=== PATIENT | female | born 1970 | race American Indian/Alaskan Native ===

== ENCOUNTER 2016-07-25 22:29 | Emergency (ER) | payer MEDICARE, MEDICAID ==
[2016-07-25] MEDS ORDERED: Sodium Chloride 0.9% 250 ML IV SCH (23:00)
[2016-07-25 23:19] LABS: CHLORIDE,CL 105 mmol/L (101-111); SODIUM,NA 141 mmol/L (135-145)
[2016-07-26 00:18] VITALS: BP 111/67
[2016-07-26] MEDS ORDERED: Sodium Chloride 0.9% 1,000 ML IV SCH (00:30)
--- NOTE | 2016-07-26 00:40 | EDM.PDOC ---
ED HPI ALTERED MENTAL STATUS - General Chief Complaint: Drug or Alcohol Abuse Stated Complaint: COMING BY AMBULANCE Time Seen by Provider: 07/25/16 22:35 Source of Information: Reports: Patient, EMS History Limitations: Reports: Altered mental status - History of Present Illness INITIAL COMMENTS - FREE TEXT/NARRATIVE: ED via [facility]. Patient passenger in vehicle stopped for DUI . Patient found to be unresponsive by [employer] and EMS called. Patient drowsy on arrival. Opens eyes. Sppech thick. Admits taking approximately 18 - 300mg Gabepentin throughout day and 16 1 mg aprazolam. Denies attempting to harm self, just trying for good buzz. PD noted pill bottles in vehicle. Rx filled today for Gabapentin 300mg # 90 with 46 remaining and Aprazolam 1mg #60 with 37 remaining. Also found was Rx for Trazodone not belonging to either patient or wedding transportation driver of car. [employer] Frame of vehicle also found with pill.s Denied ETOH or other drug use. Baseline Mental Status: Reports: alert/oriented - Related Data Allergies/ADRs: Allergies acetaminophen [From Tylenol-Codeine #3] Allergy (Verified 07/25/16 22:45) Nausea codeine phosphate [From Tylenol-Codeine #3] Allergy (Verified 07/25/16 22:45) Nausea Home Meds: Home Meds Divalproex Sodium [Depakote] 125 mg PO BEDTIME 06/09/15 [History] Divalproex Sodium [Depakote] 500 mg PO BID 06/09/15 [History] QUEtiapine [SEROquel] 100 mg PO BEDTIME 06/09/15 [History] Sertraline [Zoloft] 150 mg PO TID 06/09/15 [History] Albuterol [Proair HFA] 2 puff INH Q6H 11/22/15 [History] Ibuprofen [Ibuprofen] 1 tab PO Q6H PRN 11/22/15 [History] SUMAtriptan [Imitrex] 1 tab PO ASDIRECTED PRN 11/22/15 [History] Past Medical History HEENT History: Reports: None Cardiovascular History: Reports: None Respiratory History: Reports: Asthma Gastrointestinal History: Reports: None Genitourinary History: Reports: Renal calculus, UTI, recurrent 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: , Other (see below) Other OB/BYN History: fulgeration of endometriosis Musculoskeletal History: Reports: Arthritis Neurological History: Reports: None Psychiatric History: Reports: Anxiety, Bipolar, Depression, OCD, PTSD, Other ( see below) Other Psychiatric History: tobacco habituation Endocrine/Metabolic History: Reports: None Hematologic History: Reports: Anemia Immunologic History: Reports: None Oncologic (Cancer) History: Reports: None Dermatologic History: Reports: None - Infectious Disease History Infectious Disease History: Reports: Chicken pox - Past Surgical History Head Surgeries/Procedures: Reports: None HEENT Surgical History: Reports: Tonsillectomy Cardiovascular Surgical History: Reports: None Respiratory Surgical History: Reports: None GI Surgical History: Reports: Cholecystectomy, Colonoscopy Female Surgical History: Reports: Breast biopsy, Hysterectomy, Salpingo- oophorectomy, Other (see below) Other Female Surgeries/Procedures: cervix removed Neurological Surgical History: Reports: None Musculoskeletal Surgical History: Reports: Shoulder surgery Social & Family History - Family History Family Medical History: Noncontributory - Tobacco Use Smoking Status *Q: Current Every Day Smoker Years of Tobacco use: 25 Packs/Tins Daily: 7 Used Tobacco, but Quit: No Second Hand Smoke Exposure: No - Caffeine Use Caffeine Use: Reports: Coffee, Soda, Tea - Alcohol Use Days Per Week of Alcohol Use: 1 Number of Drinks Per Day: 6 Total Drinks Per Week: 6 - Recreational Drug Use Recreational Drug Use: No - Living Situation & Occupation Living situation: Reports: with family Occupation: unemployed ED ROS GENERAL - Review of Systems Review Of Systems: See Below Constitutional: Reports: no symptoms HEENT: Reports: No symptoms, Glasses Respiratory: Reports: No Symptoms Cardiovascular: Reports: No symptoms GI/Abdominal: Reports: No symptoms Musculoskeletal: Reports: no symptoms Skin: Reports: no symptoms Neurological: Reports: Other (drowsy) Psychiatric: Denies: Suicidal ideation - Physical Exam Exam: See Below Exam Limited By: No limitations General Appearance: moderate distress, other (drowsy responds to voice, speech thick responses slow.) Eye Exam: bilateral eye: EOMI, PERRL (3mm) Ears: normal external exam Nose: normal inspection Throat/Mouth: Normal inspection Head Exam: atraumatic, normocephalic Neck: normal inspection Respiratory/Chest: no respiratory distress, lungs clear, normal breath sounds Cardiovascular: normal peripheral pulses, regular rate, rhythm GI/Abdominal: normal bowel sounds Neuro Exam (Abbreviated): oriented, normal cognition, slow to respond Psychiatric: flat affect Skin Exam: Warm, Dry, Intact, Normal color Course - Vital Signs Last Recorded V/S: Last Vital Signs Temp 97 F 07/26/16 00:17 Pulse 75 07/26/16 00:17 Resp 16 07/26/16 00:17 BP 111/67 07/26/16 00:17 Pulse Ox 96 07/26/16 00:17 - Orders/Labs/Meds Orders: Active Orders 24 hr Category Date Time Status EKG 12 Lead [EKG Documentation Completion] [RC] URGENT Care 07/25/16 23:10 Active Labs: Laboratory Tests 07/25/16 07/25/16 07/25/16 Range/Units 22:50 22:55 22:55 WBC 7.3 (5.0-10.0) 10^3/uL RBC 4.37 (4.2-5.4) 10^6/uL Hgb 13.5 (12.0-16.0) g/dL Hct 39.3 (37.0-47.0) % MCV 89.9 (80-100) fL MCH 30.9 (27.0-34.0) pg MCHC 34.4 (33.0-35.0) g/dL Plt Count 225 (150-450) 10^3/uL Neut % (Auto) 30.3 L (42.2-75.2) % Lymph % (Auto) 53.5 H (20.5-50.1) % [place] % (Auto) 8.4 H (2-8) % Eos % (Auto) 7.5 H (1.0-3.0) % Baso % (Auto) 0.3 (0.0-1.0) % Sodium 141 (135-145) mmol/L Potassium 4.1 (3.6-5.0) mmol/L Chloride 105 (101-111) mmol/L Carbon Dioxide 27.0 (21.0-31.0) mmol/L Anion Gap 13.1 BUN 21 H (7-18) mg/dL Creatinine 0.7 (0.6-1.3) mg/dL Est Cr Clr Drug Dosing TNP Estimated GFR (MDRD) > 60 BUN/Creatinine Ratio 30.00 Glucose 95 (74-105) mg/dL Calcium 9.6 (8.4-10.2) mg/dl Total Bilirubin 0.4 (0.2-1.0) mg/dL AST 24 (10-42) IU/L ALT 30 (10-60) IU/L Alkaline Phosphatase 49 (42-121) IU/L Total Protein 7.0 (6.7-8.2) g/dl Albumin 4.1 (3.2-5.5) g/dl Globulin 2.9 Albumin/Globulin Ratio 1.41 Urine Opiates Screen Negative (NEGATIVE) Ur Oxycodone Screen Negative (NEGATIVE) Urine Methadone Screen Negative (NEGATIVE) Ur Barbiturates Screen Negative (NEGATIVE) U Tricyclic Antidepress Negative (NEGATIVE) Ur Phencyclidine Scrn Negative (NEGATIVE) Ur Amphetamine Screen Negative (NEGATIVE) U Methamphetamines Scrn Negative (NEGATIVE) Urine MDMA Screen Negative (NEGATIVE) U Benzodiazepines Scrn Positive H (NEGATIVE) Urine Cocaine Screen Negative (NEGATIVE) U Marijuana (THC) Screen Negative (NEGATIVE) Ethyl Alcohol < 5 mg/dL Meds: Medications Discontinued Medications Generic Name Dose Route Start Last Admin Trade Name Freq PRN Reason Stop Dose Admin Sodium Chloride 250 mls @ 250 mls/hr 07/25/16 23:00 07/25/16 23:00 Normal Saline IV 250 mls/hr ASDIRECTED MARTINEZ Administration Sodium Chloride 1,000 mls @ 250 mls/hr 07/26/16 00:30 07/26/16 00:33 Normal Saline IV 250 mls/hr ASDIRECTED MARTINEZ Administration - Re-Assessments/Exams Free Text/Narrative Re-Assessment/Exam: 07/26/16 00:41 Drowsy, opens eyes to verbal. Slight decrease in BP when sleeping HR remains 70- 80. EKG NSR 07/26/16 00:55 Up at bedside steady, Departure - Departure Time of Disposition: 00:55 Disposition: Home, Self-Care 01 Condition: fair Clinical Impression: Drug abuse Instructions: Benzodiazepine Overdose Forms: ED Department Discharge Additional Instructions: Take Prescription medications as directed - DONT ABUSE - My Orders Last 24 Hours: My Active Orders 07/25/16 23:10 EKG 12 Lead [EKG Documentation Completion] [RC] URGENT - Assessment/Plan Last 24 Hours: My Active Orders 07/25/16 23:10 EKG 12 Lead [EKG Documentation Completion] [RC] URGENT
--- NOTE | 2016-07-29 23:00 | EKG ---
07/25/2016 - MICHA PAULSON 12-lead EKG shows normal sinus rhythm with heart rate of 62. No significant ST elevation or ST depression noted on this 12-lead EKG. Mild nonspecific ST changes noted on lead V2, could be lead placement. [facility] /[id number]
--- NOTE | 2016-07-30 09:43 | EKG ---
07/25/2016 - MICHA PAULSON - Twelve-lead EKG shows normal sinus rhythm with heart rate of 62. No significant ST elevation or ST depression noted on this 12-lead EKG. [facility] /[id number]
== END 2016-07-26 01:03 | disposition home or self-care (01) ==
LOC: DL.ED 22:29
DX: F19.10 Other psychoactive substance abuse, uncomplicated (principal); J45.909 Unspecified asthma, uncomplicated; M19.90 Unspecified osteoarthritis, unspecified site; F41.9 Anxiety disorder, unspecified; F32.9 Major depressive disorder, single episode, unspecified; F17.210 Nicotine dependence, cigarettes, uncomplicated; Z87.440 Personal history of urinary (tract) infections; Z79.899 Other long term (current) drug therapy; Z86.2 Personal history of diseases of the blood and blood-forming organs and certain disorders involving the immune mechanism; Z90.49 Acquired absence of other specified parts of digestive tract; Z98.890 Other specified postprocedural states; Z90.710 Acquired absence of both cervix and uterus; Z88.5 Allergy status to narcotic agent; Z88.6 Allergy status to analgesic agent
CPT/HCPCS: 36415; 80053; 80305; 85025; 93005; 96365; 99285; G0480; J7030; J7050; 93010; 99282

== ENCOUNTER 2017-03-22 12:00 | Emergency (ER) | payer MEDICARE, MEDICAID ==
[2017-03-22] MEDS ORDERED: Sodium Chloride 0.9% 10 ML Syringe FLUSH PRN (12:22)
[2017-03-22 12:27] VITALS: BP 104/69
--- NOTE | 2017-03-22 12:51 | EDM.PDOC ---
ED HPI GENERAL MEDICAL PROBLEM - General Chief Complaint: Gastrointestinal Problem Stated Complaint: PASSING BLOOD IN BM MOVEMENTS Time Seen by Provider: 03/22/17 12:15 Source of Information: Reports: Patient, RN, RN Notes Reviewed History Limitations: Reports: No Limitations - History of Present Illness INITIAL COMMENTS - FREE TEXT/NARRATIVE: Pt presents to ER with c/o blood in her stool. She states last night after eating supper she did not feel well and went to the bathroom. She states she felt as if she was going to pass out. She states she went to bed after that. She was up at 2am when she had blood in her stool. She states she has had 2-3 more bowel movements with blood in it, with the last one being 30-40 minutes prior to arrival. She states the blood in the stool is bright red. She states abdominal cramping comes and goes, but feels a burning pain in her stomach. She rates the pain 6/10. She admits to nausea and dizziness last night, but denies vomiting, fever, chills, recent illness, abdominal or stomach issues in the past , and alcohol use. Onset: Sudden Onset Date: 03/21/17 Location: Reports: Abdomen Severity: Mild Improves with: Reports: None Worsens with: Reports: None Associated Symptoms: Reports: No Other Symptoms Epigastric Pain Score (Numeric/FACES): 6 - Related Data Allergies Allergy/AdvReac Type Severity Reaction Status Date / Time acetaminophen Allergy Nausea Verified 07/25/16 22:45 [From Tylenol-Codeine #3] codeine phosphate Allergy Nausea Verified 07/25/16 22:45 [From Tylenol-Codeine #3] Home Meds: Home Meds Albuterol [Proair HFA] 2 puff INH Q6H 11/22/15 [History] Ibuprofen [Ibuprofen] 1 tab PO Q6H PRN 11/22/15 [History] SUMAtriptan [Imitrex] 1 tab PO ASDIRECTED PRN 11/22/15 [History] Gabapentin [Neurontin] 1 tab PO TID 03/22/17 [History] QUEtiapine Fumarate [Seroquel Xr] 450 mg PO BEDTIME 03/22/17 [History] Tolterodine [Detrol] 1 tab PO DAILY 03/22/17 [History] carBAMazepine [TEGretol] 4 tab PO BID 03/22/17 [History] Past Medical History HEENT History: Reports: None Cardiovascular History: Reports: None Respiratory History: Reports: Asthma Gastrointestinal History: Reports: None Genitourinary History: Reports: Renal Calculus, UTI, Recurrent 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 OB/BYN History: fulgeration of endometriosis Musculoskeletal History: Reports: Arthritis Neurological History: Reports: None Psychiatric History: Reports: Anxiety, Bipolar, Depression, OCD, PTSD Other Psychiatric History: tobacco habituation Endocrine/Metabolic History: Reports: None Hematologic History: Reports: Anemia Immunologic History: Reports: None Oncologic (Cancer) History: Reports: None Dermatologic History: Reports: None - Infectious Disease History Infectious Disease History: Reports: Chicken Pox - Past Surgical History Head Surgeries/Procedures: Reports: None HEENT Surgical History: Reports: Tonsillectomy Cardiovascular Surgical History: Reports: None Respiratory Surgical History: Reports: None GI Surgical History: Reports: Cholecystectomy, Colonoscopy Female Surgical History: Reports: Breast Biopsy, Hysterectomy, Salpingo- Oophorectomy Neurological Surgical History: Reports: None Musculoskeletal Surgical History: Reports: Shoulder Surgery Social & Family History - Family History Family Medical History: Noncontributory - Tobacco Use Smoking Status *Q: Current Every Day Smoker Years of Tobacco use: 30 Packs/Tins Daily: 0.5 Used Tobacco, but Quit: No Second Hand Smoke Exposure: No - Caffeine Use Caffeine Use: Reports: Coffee, Energy Drinks, Soda, Tea - Alcohol Use Days Per Week of Alcohol Use: 1 Number of Drinks Per Day: 6 Total Drinks Per Week: 6 - Recreational Drug Use Recreational Drug Use: No - Living Situation & Occupation Living situation: Reports: with Family Occupation: Unemployed ED ROS GENERAL - Review of Systems Review Of Systems: ROS reveals no pertinent complaints other than HPI. ED EXAM, GI/ABD - Physical Exam Exam: See Below Exam Limited By: No Limitations General Appearance: Alert, WD/WN, No Apparent Distress Eyes: Bilateral: Normal Appearance, EOMI Ears: Normal External Exam, Hearing Grossly Normal Nose: Normal Inspection Throat/Mouth: Normal Inspection, Normal Voice, No Airway Compromise Head: Atraumatic, Normocephalic Neck: Normal Inspection, Supple, Non-Tender, Full Range of Motion Respiratory/Chest: No Respiratory Distress, Lungs Clear, Normal Breath Sounds, No Accessory Muscle Use, Chest Non-Tender Cardiovascular: Normal Peripheral Pulses, Regular Rate, Rhythm, No Edema, No Gallop, No JVD, No Murmur, No Rub GI/Abdominal Exam: Normal Bowel Sounds, Soft, No Organomegaly, No Distention, No Abnormal Bruit, No Mass, Tender (Female) Exam: Deferred Rectal (Female) Exam: Normal Exam, Normal Rectal Tone, Black Stool, Bloody Stool , Heme + Stool, Hemorrhoids (internal) Back Exam: Normal Inspection, Full Range of Motion Extremities: Normal Inspection, Normal Range of Motion, Non-Tender, No Pedal Edema, Normal Capillary Refill Neurological: Alert, Oriented, CN II-XII Intact, Normal Cognition, Normal Gait, Normal Reflexes, No Motor/Sensory Deficits Psychiatric: Normal Affect, Normal Mood Skin Exam: Warm, Dry, Intact, Normal Color, No Rash Lymphatic: No Adenopathy Course - Vital Signs Last Recorded V/S: Last Vital Signs Temp 98.4 F 03/22/17 12:05 Pulse 83 03/22/17 12:05 Resp 16 03/22/17 12:05 BP 104/69 03/22/17 12:05 Pulse Ox 99 03/22/17 12:05 - Orders/Labs/Meds Orders: Active Orders 24 hr Category Date Time Status Peripheral IV Care [RC] . DIRECTED Care 03/22/17 12:23 Active Sodium Chloride 0.9% [Saline Flush] Med 03/22/17 12:22 Active 10 ml FLUSH ASDIRECTED PRN Peripheral IV Insertion Adult [OM.PC] Stat Oth 03/22/17 12:22 Ordered Medication Orders Sodium Chloride (Saline Flush) 10 ml FLUSH ASDIRECTED PRN PRN Reason: Keep Vein Open Last Admin: 03/22/17 12:41 Dose: 10 ml Labs: Laboratory Tests 03/22/17 03/22/17 Range/Units 12:30 12:30 WBC 7.9 (5.0-10.0) 10^3/uL RBC 4.42 (4.2-5.4) 10^6/uL Hgb 13.7 (12.0-16.0) g/dL Hct 39.0 (37.0-47.0) % MCV 88.2 (80-100) fL MCH 31.0 (27.0-34.0) pg MCHC 35.1 H (33.0-35.0) g/dL Plt Count 268 (150-450) 10^3/uL Neut % (Auto) 70.9 (42.2-75.2) % Lymph % (Auto) 19.6 L (20.5-50.1) % [place] % (Auto) 6.6 (2-8) % Eos % (Auto) 2.8 (1.0-3.0) % Baso % (Auto) 0.1 (0.0-1.0) % Sodium 138 (135-145) mmol/L Potassium 4.1 (3.6-5.0) mmol/L Chloride 105 (101-111) mmol/L Carbon Dioxide 28.0 (21.0-31.0) mmol/L Anion Gap 9.1 BUN 14 (7-18) mg/dL Creatinine 0.9 (0.6-1.3) mg/dL Est Cr Clr Drug Dosing 74.34 mL/min Estimated GFR (MDRD) > 60 BUN/Creatinine Ratio 15.55 Glucose 106 H (74-105) mg/dL Calcium 9.6 (8.4-10.2) mg/dl Total Bilirubin 0.2 (0.2-1.0) mg/dL AST 20 (10-42) IU/L ALT 16 (10-60) IU/L Alkaline Phosphatase 58 (42-121) IU/L Total Protein 7.2 (6.7-8.2) g/dl Albumin 4.4 (3.2-5.5) g/dl Globulin 2.8 Albumin/Globulin Ratio 1.57 Meds: Medications Generic Name Dose Route Start Last Admin Trade Name Freq PRN Reason Stop Dose Admin Sodium Chloride 10 ml 03/22/17 12:22 03/22/17 12:41 Saline Flush FLUSH 10 ml ASDIRECTED PRN Administration Keep Vein Open Discontinued Medications Generic Name Dose Route Start Last Admin Trade Name Freq PRN Reason Stop Dose Admin Iopamidol 75 ml 03/22/17 13:03 03/22/17 13:10 Isovue-300 (61%) IVPUSH 03/22/17 13:04 75 ml ONETIME ONE Administration - Radiology Interpretation Free Text/Narrative:: CT Abdomen/Pelvis with contrast: Probable mild left sided colitis See rad report Departure - Departure Time of Disposition: 14:02 Disposition: Home, Self-Care 01 Condition: Fair Clinical Impression: Colitis Abdominal pain Qualifiers: Abdominal location: generalized Qualified Code(s): R10.84 - Generalized abdominal pain - Discharge Information Instructions: Abdominal Pain, Adult, [id number], Colitis Forms: ED Department Discharge Additional Instructions: RX: Prednisone Follow up this week with your primary care facility - My Orders Last 24 Hours: My Active Orders 03/22/17 12:22 Sodium Chloride 0.9% [Saline Flush] 10 ml FLUSH ASDIRECTED PRN Peripheral IV Insertion Adult [OM.PC] Stat 03/22/17 12:23 Peripheral IV Care [RC] . DIRECTED - Assessment/Plan Last 24 Hours: My Active Orders 03/22/17 12:22 Sodium Chloride 0.9% [Saline Flush] 10 ml FLUSH ASDIRECTED PRN Peripheral IV Insertion Adult [OM.PC] Stat 03/22/17 12:23 Peripheral IV Care [RC] . DIRECTED
[2017-03-22 13:00] LABS: CHLORIDE,CL 105 mmol/L (101-111); SODIUM,NA 138 mmol/L (135-145)
[2017-03-22] MEDS ORDERED: Iopamidol 612 MG/ML 75 ML Bottle IVPUSH ONE (13:03)
== END 2017-03-22 14:35 | disposition home or self-care (01) ==
LOC: DL.ED 12:00
DX: K52.9 Noninfective gastroenteritis and colitis, unspecified (principal); F17.210 Nicotine dependence, cigarettes, uncomplicated; Z88.6 Allergy status to analgesic agent; Z88.5 Allergy status to narcotic agent; Z79.899 Other long term (current) drug therapy
CPT/HCPCS: 36415; 74177; 80053; 82272; 85025; 99284; J7050; Q9967

== ENCOUNTER 2017-06-23 13:33 | Emergency (ER) | payer MEDICARE, MEDICAID ==
[2017-06-23 14:03] VITALS: BP 111/71
[2017-06-23] MEDS ORDERED: Ketorolac 30 MG/ML SDV IM ONE (14:19)
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
== END 2017-06-23 14:46 | disposition home or self-care (01) ==
LOC: DL.ED 13:33
DX: S63.502A Unspecified sprain of left wrist, initial encounter (principal); Z88.6 Allergy status to analgesic agent; Z88.5 Allergy status to narcotic agent; Z79.899 Other long term (current) drug therapy; F17.210 Nicotine dependence, cigarettes, uncomplicated; W50.0XXA Accidental hit or strike by another person, initial encounter
CPT/HCPCS: 73110; 96372; 99283; J1885

== ENCOUNTER 2017-08-02 18:23 | Emergency (ER) | payer MEDICARE, MEDICAID ==
--- NOTE | 2017-08-02 19:20 | EDM.PDOC ---
ED HPI GENERAL MEDICAL PROBLEM - General Chief Complaint: Upper Extremity Injury/Pain Stated Complaint: [id number] POST SURGERY ON WRIST SOMETHING IS WRONG Time Seen by Provider: 08/02/17 19:05 Source of Information: Reports: Patient History Limitations: Reports: No Limitations - History of Present Illness INITIAL COMMENTS - FREE TEXT/NARRATIVE: Surgery to leftt wrist past Thursday. Patient unsure why, "something with tendon" . Bumped on counter last night today increased pain redness and swelling. States tried To get a hold of surgeon in [place] yesterday. Tried Ibuprofen without relief. 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 Left Wrist Pain Score (Numeric/FACES): 8 - Related Data Allergies Allergy/AdvReac Type Severity Reaction Status Date / Time acetaminophen Allergy Nausea Verified 08/02/17 18:43 [From Tylenol-Codeine #3] codeine phosphate Allergy Nausea Verified 08/02/17 18:43 [From Tylenol-Codeine #3] Home Meds: Home Meds Albuterol [Proair HFA] 2 puff INH Q6H 11/22/15 [History] Ibuprofen 1 tab PO Q6H PRN 11/22/15 [History] SUMAtriptan [Imitrex] 1 tab PO ASDIRECTED PRN 11/22/15 [History] Gabapentin [Neurontin] 1 tab PO TID 03/22/17 [History] QUEtiapine Fumarate [Seroquel Xr] 450 mg PO BEDTIME 03/22/17 [History] Tolterodine [Detrol] 1 tab PO DAILY 03/22/17 [History] carBAMazepine [TEGretol] 4 tab PO BID 03/22/17 [History] Past Medical History HEENT History: Reports: None Cardiovascular History: Reports: None Respiratory History: Reports: Asthma Gastrointestinal History: Reports: None Genitourinary History: Reports: Renal Calculus, UTI, 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 OB/BYN History: fulgeration of endometriosis Musculoskeletal History: Reports: Arthritis Neurological History: Reports: None Psychiatric History: Reports: Anxiety, Bipolar, Depression, OCD, PTSD Other Psychiatric History: tobacco habituation Endocrine/Metabolic History: Reports: None Hematologic History: Reports: Anemia Immunologic History: Reports: None Oncologic (Cancer) History: Reports: None Dermatologic History: Reports: None - Infectious Disease History Infectious Disease History: Reports: Chicken Pox - Past Surgical History Head Surgeries/Procedures: Reports: None HEENT Surgical History: Reports: Tonsillectomy Cardiovascular Surgical History: Reports: None Respiratory Surgical History: Reports: None GI Surgical History: Reports: Cholecystectomy, Colonoscopy Female Surgical History: Reports: Breast Biopsy, Hysterectomy, Salpingo- Oophorectomy Neurological Surgical History: Reports: None Musculoskeletal Surgical History: Reports: Shoulder Surgery Social & Family History - Family History Family Medical History: Noncontributory Oncologic: Reports: Lymphoma - Tobacco Use Smoking Status *Q: Current Every Day Smoker Years of Tobacco use: 20 Packs/Tins Daily: 8 Used Tobacco, but Quit: No Second Hand Smoke Exposure: No - Caffeine Use Caffeine Use: Reports: Energy Drinks, Soda - Alcohol Use Days Per Week of Alcohol Use: 1 Number of Drinks Per Day: 6 Total Drinks Per Week: 6 - Recreational Drug Use Recreational Drug Use: No - Living Situation & Occupation Living situation: Reports: with Family Occupation: Unemployed Review of Systems - Review of Systems Review Of Systems: ROS reveals no pertinent complaints other than HPI. ED EXAM, GENERAL - Physical Exam Exam: See Below Exam Limited By: No Limitations General Appearance: Alert, No Apparent Distress Eye Exam: Bilateral Eye: EOMI Ears: Normal External Exam Throat/Mouth: Normal Voice Head: Atraumatic, Normocephalic Respiratory/Chest: No Respiratory Distress Cardiovascular: Normal Peripheral Pulses, Regular Rate, Rhythm Extremities: Other (mild swelling to left wrist over distal radius with localized redness surrounding area of incision. Slight decrease in sensation fo datal 3rd and 4th finger to light touch. ) Neurological: Alert, Oriented Skin Exam: Warm, Dry, Intact, Wound/Incision (right lateral wrist. Surgical incision. clean no drainage. ) Course - Vital Signs Last Recorded V/S: Last Vital Signs Temp 98.3 F 08/02/17 18:30 Pulse 84 08/02/17 18:30 Resp 18 08/02/17 18:30 BP 134/93 H 08/02/17 18:30 Pulse Ox 100 08/02/17 18:30 - Orders/Labs/Meds Labs: Laboratory Tests 08/02/17 08/02/17 08/02/17 Range/Units 19:27 19:27 19:27 WBC 4.1 L (5.0-10.0) 10^3/uL RBC 4.11 L (4.2-5.4) 10^6/uL Hgb 12.8 (12.0-16.0) g/dL Hct 35.8 L (37.0-47.0) % MCV 87.1 (80-100) fL MCH 31.1 (27.0-34.0) pg MCHC 35.8 H (33.0-35.0) g/dL Plt Count 245 (150-450) 10^3/uL Neut % (Auto) 34.7 L (42.2-75.2) % Lymph % (Auto) 48.9 (20.5-50.1) % [place] % (Auto) 9.6 H (2-8) % Eos % (Auto) 6.6 H (1.0-3.0) % Baso % (Auto) 0.2 (0.0-1.0) % Sodium 134 L (135-145) mmol/L Potassium 3.8 (3.6-5.0) mmol/L Chloride 97 L (101-111) mmol/L Carbon Dioxide 30.0 (21.0-31.0) mmol/L Anion Gap 10.8 BUN 13 (7-18) mg/dL Creatinine 0.8 (0.6-1.3) mg/dL Est Cr Clr Drug Dosing 66.46 mL/min Estimated GFR (MDRD) > 60 BUN/Creatinine Ratio 16.25 Glucose 87 (74-105) mg/dL Calcium 9.4 (8.4-10.2) mg/dl Total Bilirubin 0.4 (0.2-1.0) mg/dL AST 67 H (10-42) IU/L ALT 105 H (10-60) IU/L Alkaline Phosphatase 82 (42-121) IU/L C-Reactive Protein < 0.5 (0.0-1.3) mg/dL Total Protein 6.9 (6.7-8.2) g/dl Albumin 4.2 (3.2-5.5) g/dl Globulin 2.7 Albumin/Globulin Ratio 1.56 - Radiology Interpretation Free Text/Narrative:: left wrist negative for fracture Departure - Departure Time of Disposition: 20:33 Disposition: Home, Self-Care 01 Condition: Good Clinical Impression: Wrist pain Qualifiers: Laterality: left Qualified Code(s): M25.532 - Pain in left wrist - Discharge Information Instructions: Wrist Pain, Adult, [id number] Referrals: Betty Oliveira [Primary Care Provider] - Forms: ED Department Discharge Additional Instructions: ice pack elevate hortencia wrap follow up with surgeon tomorrow am. Alternate tylenol 650mg and ibuprofen 600mg every 4 hours as needed for pain
[2017-08-02 20:11] LABS: CHLORIDE,CL 97 mmol/L (101-111); SODIUM,NA 134 mmol/L (135-145)
[2017-08-02] MEDS ORDERED: Ketorolac 30 MG/ML SDV IVPUSH ONE (20:55)
[2017-08-02 21:12] VITALS: BP 128/90
== END 2017-08-02 21:14 | disposition home or self-care (01) ==
LOC: DL.ED 18:23
DX: M25.532 Pain in left wrist (principal); F17.210 Nicotine dependence, cigarettes, uncomplicated; Z88.6 Allergy status to analgesic agent; Z88.5 Allergy status to narcotic agent; Z79.899 Other long term (current) drug therapy
CPT/HCPCS: 36415; 73110; 80053; 85025; 86140; 96372; 99283; J1885; 99282

== ENCOUNTER 2017-08-13 18:07 | Emergency (ER) | payer MEDICARE, MEDICAID ==
[2017-08-13 18:55] VITALS: BP 132/76
[2017-08-13] MEDS ORDERED: Albuterol/Ipratropium 3.0-0.5 MG/3 ML Neb Soln NEB ONE (19:03)
[2017-08-13] MEDS ORDERED: Acetaminophen 325 MG Tab PO ONE (19:03)
[2017-08-13] MEDS ORDERED: Albuterol 0.083% 2.5 MG/3 ML Neb Soln NEB ONE (19:33)
[2017-08-13 19:37] LABS: CHLORIDE,CL 97 mmol/L (101-111); SODIUM,NA 132 mmol/L (135-145)
[2017-08-13] MEDS ORDERED: methylPREDNISolone Sodium Succinate 125 MG/2 ML SDV IVPUSH ONE (19:39)
[2017-08-13] MEDS ORDERED: Benzonatate 100 MG Cap PO ONE (19:39)
[2017-08-13] MEDS ORDERED: Amoxicillin/Clavulanate K 875-125 MG Tab PO ONE (20:35)
--- NOTE | 2017-08-13 20:40 | EDM.PDOC ---
ED HPI GENERAL MEDICAL PROBLEM - General Chief Complaint: Respiratory Problem Stated Complaint: [id number] SICK WITH A COLD 6 DAYS GETTING WORSE Time Seen by Provider: 08/13/17 19:00 Source of Information: Reports: Patient History Limitations: Reports: No Limitations - History of Present Illness INITIAL COMMENTS - FREE TEXT/NARRATIVE: c/o cough, cold symptoms for one week. Chest sands with coughing, Has inhaler not helping much. Hx "acute asthma", Decreased tobacco use over past week. Chest Pain Score (Numeric/FACES): 5 - Related Data Allergies Allergy/AdvReac Type Severity Reaction Status Date / Time acetaminophen Allergy Nausea Verified 08/13/17 18:49 [From Tylenol-Codeine #3] codeine phosphate Allergy Nausea Verified 08/13/17 18:49 [From Tylenol-Codeine #3] Home Meds: Home Meds Albuterol [Proair HFA] 2 puff INH Q6H 11/22/15 [History] Ibuprofen 1 tab PO Q6H PRN 11/22/15 [History] SUMAtriptan [Imitrex] 1 tab PO ASDIRECTED PRN 11/22/15 [History] Gabapentin [Neurontin] 1 tab PO TID 03/22/17 [History] QUEtiapine Fumarate [Seroquel Xr] 450 mg PO BEDTIME 03/22/17 [History] Tolterodine [Detrol] 1 tab PO DAILY 03/22/17 [History] carBAMazepine [TEGretol] 4 tab PO BID 03/22/17 [History] oxyCODONE 5 mg PO ASDIRECTED 08/13/17 [History] Past Medical History HEENT History: Reports: None Cardiovascular History: Reports: None Respiratory History: Reports: Asthma Gastrointestinal History: Reports: None Genitourinary History: Reports: Renal Calculus, UTI, 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 OB/BYN History: fulgeration of endometriosis Musculoskeletal History: Reports: Arthritis Neurological History: Reports: None Psychiatric History: Reports: Anxiety, Bipolar, Depression, OCD, PTSD Other Psychiatric History: tobacco habituation Endocrine/Metabolic History: Reports: None Hematologic History: Reports: Anemia Immunologic History: Reports: None Oncologic (Cancer) History: Reports: None Dermatologic History: Reports: None - Infectious Disease History Infectious Disease History: Reports: Chicken Pox - Past Surgical History Head Surgeries/Procedures: Reports: None HEENT Surgical History: Reports: Tonsillectomy Cardiovascular Surgical History: Reports: None Respiratory Surgical History: Reports: None GI Surgical History: Reports: Cholecystectomy, Colonoscopy Female Surgical History: Reports: Breast Biopsy, Hysterectomy, Salpingo- Oophorectomy Neurological Surgical History: Reports: None Musculoskeletal Surgical History: Reports: Shoulder Surgery Social & Family History - Family History Family Medical History: Noncontributory Oncologic: Reports: Lymphoma - Caffeine Use Caffeine Use: Reports: Coffee - Recreational Drug Use Recreational Drug Use: No - Living Situation & Occupation Living situation: Reports: with Family Occupation: Unemployed ED ROS GENERAL - Review of Systems Review Of Systems: See Below Constitutional: Reports: Fever, Chills, Malaise HEENT: Reports: Throat Pain Respiratory: Reports: Wheezing, Pleuritic Chest Pain, Cough. Denies: Sputum Cardiovascular: Reports: No Symptoms GI/Abdominal: Reports: No Symptoms Musculoskeletal: Reports: No Symptoms Skin: Reports: No Symptoms Neurological: Reports: No Symptoms ED EXAM, GENERAL - Physical Exam Exam: See Below Exam Limited By: No Limitations General Appearance: Alert, Moderate Distress (frequent dry cough), Thin Ears: Normal External Exam, Normal TMs Nose: Normal Inspection Throat/Mouth: Normal Inspection, Perioral Cyanosis Head: Atraumatic Neck: Normal Inspection Respiratory/Chest: Wheezing (right base), Other (bronchospasm, freq dry cough) Cardiovascular: Normal Peripheral Pulses, Regular Rate, Rhythm GI/Abdominal: Normal Bowel Sounds Extremities: Normal Inspection Neurological: Alert, Oriented, Normal Cognition Psychiatric: Normal Affect Skin Exam: Warm, Dry, Intact Course - Vital Signs Last Recorded V/S: Last Vital Signs Temp 103.3 F H 08/13/17 18:53 Pulse 127 H 08/13/17 19:36 Resp 20 08/13/17 18:53 BP 132/76 08/13/17 18:53 Pulse Ox 90 L 08/13/17 18:53 - Orders/Labs/Meds Orders: Active Orders 24 hr Category Date Time Status RT Aerosol Therapy [RC] ASDIRECTED Care 08/13/17 19:03 Active RT Aerosol Therapy [RC] ASDIRECTED Care 08/13/17 19:33 Active CULTURE BLOOD [BC] Stat Lab 08/13/17 19:08 Received CULTURE BLOOD [BC] Stat Lab 08/13/17 19:12 Received Blood Culture x2 Reflex Set [OM.PC] Stat Oth 08/13/17 19:02 Ordered Labs: Laboratory Tests 08/13/17 08/13/17 08/13/17 Range/Units 19:08 19:08 19:08 WBC 8.7 (5.0-10.0) 10^3/uL RBC 3.81 L (4.2-5.4) 10^6/uL Hgb 11.6 L (12.0-16.0) g/dL Hct 32.8 L (37.0-47.0) % MCV 86.1 (80-100) fL MCH 30.4 (27.0-34.0) pg MCHC 35.4 H (33.0-35.0) g/dL Plt Count 234 (150-450) 10^3/uL Neut % (Auto) 74.2 (42.2-75.2) % Lymph % (Auto) 15.5 L (20.5-50.1) % [place] % (Auto) 8.7 H (2-8) % Eos % (Auto) 1.5 (1.0-3.0) % Baso % (Auto) 0.1 (0.0-1.0) % Sodium 132 L (135-145) mmol/L Potassium 3.5 L (3.6-5.0) mmol/L Chloride 97 L (101-111) mmol/L Carbon Dioxide 25.0 (21.0-31.0) mmol/L Anion Gap 13.5 BUN 9 (7-18) mg/dL Creatinine 0.6 (0.6-1.3) mg/dL Est Cr Clr Drug Dosing 88.61 mL/min Estimated GFR (MDRD) > 60 BUN/Creatinine Ratio 15.00 Glucose 113 H (74-105) mg/dL Lactic Acid 0.9 (0.5-2.2) mmol/L Calcium 8.4 (8.4-10.2) mg/dl Total Bilirubin 0.8 (0.2-1.0) mg/dL AST 75 H (10-42) IU/L ALT 126 H (10-60) IU/L Alkaline Phosphatase 232 H (42-121) IU/L Total Protein 7.2 (6.7-8.2) g/dl Albumin 3.8 (3.2-5.5) g/dl Globulin 3.4 Albumin/Globulin Ratio 1.12 Meds: Medications Discontinued Medications Generic Name Dose Route Start Last Admin Trade Name Montez PRN Reason Stop Dose Admin Acetaminophen 650 mg 08/13/17 19:03 08/13/17 19:11 Tylenol PO 08/13/17 19:04 650 mg NOW ONE Administration Albuterol 2.5 mg 08/13/17 19:33 08/13/17 19:36 Proventil Neb Soln NEB 08/13/17 19:34 2.5 mg ONETIME ONE Administration Albuterol/Ipratropium 3 ml 08/13/17 19:03 08/13/17 19:12 Duoneb 3.0-0.5 Mg/3 Ml NEB 08/13/17 19:04 3 ml ONETIME ONE Administration Amoxicillin/Clavulanate Potassium 1 tab 08/13/17 20:35 08/13/17 20:41 Augmentin 875 Mg/125 Mg PO 08/13/17 20:36 1 tab ONETIME ONE Administration Benzonatate 200 mg 08/13/17 19:39 08/13/17 20:38 Tessalon Perles PO 08/13/17 19:40 200 mg ONETIME ONE Administration Methylprednisolone Sodium Succinate 125 mg 08/13/17 19:39 08/13/17 20:38 Solu-Medrol IVPUSH 08/13/17 19:40 125 mg ONETIME ONE Administration - Radiology Interpretation Free Text/Narrative:: CXR right lower pneumonia Departure - Departure Time of Disposition: 20:40 Disposition: Home, Self-Care 01 Condition: Good Clinical Impression: Pneumonia Qualifiers: Pneumonia type: due to unspecified organism Laterality: right Lung location: lower lobe of lung Qualified Code(s): J18.1 - Lobar pneumonia, unspecified organism - Discharge Information Instructions: Community-Acquired Pneumonia, Adult Referrals: Betty Oliveira [Nurse Practitioner] - Forms: ED Department Discharge Additional Instructions: augmentin 875/125 one twice daily x 10days prednisone 60mg x2 days, 40 x 2 days, 20mg x 2 days, 10 x 2 days albuterol inhaler every 4 hours as needed for cough tesselon pearles 200mg one every 8 hours as needed for cough #20 increase fluids tylenol or ibuprofen for fever or discomfort clinic follow up for recheck next week Robitussin OTC for cough - My Orders Last 24 Hours: My Active Orders 08/13/17 19:02 Blood Culture x2 Reflex Set [OM.PC] Stat 08/13/17 19:03 RT Aerosol Therapy [RC] ASDIRECTED 08/13/17 19:08 CULTURE BLOOD [BC] Stat 08/13/17 19:12 CULTURE BLOOD [BC] Stat 08/13/17 19:33 RT Aerosol Therapy [RC] ASDIRECTED - Assessment/Plan Last 24 Hours: My Active Orders 08/13/17 19:02 Blood Culture x2 Reflex Set [OM.PC] Stat 08/13/17 19:03 RT Aerosol Therapy [RC] ASDIRECTED 08/13/17 19:08 CULTURE BLOOD [BC] Stat 08/13/17 19:12 CULTURE BLOOD [BC] Stat 08/13/17 19:33 RT Aerosol Therapy [RC] ASDIRECTED
== END 2017-08-13 20:54 | disposition home or self-care (01) ==
LOC: DL.ED 18:07
DX: J18.9 Pneumonia, unspecified organism (principal); Z88.5 Allergy status to narcotic agent; Z79.899 Other long term (current) drug therapy
CPT/HCPCS: 36415; 71045; 80053; 83605; 85025; 87040; 87804; 94640; 96374; 99284; A9270; J2930; J7620; 99283

== ENCOUNTER 2017-08-16 12:35 | Emergency (ER) | payer MEDICARE, MEDICAID ==
[2017-08-16 12:58] VITALS: BP 123/84
[2017-08-16] MEDS ORDERED: Albuterol/Ipratropium 3.0-0.5 MG/3 ML Neb Soln NEB ONE (14:06)
--- NOTE | 2017-08-16 14:06 | EDM.PDOC ---
ED HPI GENERAL MEDICAL PROBLEM - General Chief Complaint: Respiratory Problem Stated Complaint: [id number] Pneumonia getting worse Time Seen by Provider: 08/16/17 14:03 Source of Information: Reports: Patient, RN, RN Notes Reviewed History Limitations: Reports: No Limitations - History of Present Illness INITIAL COMMENTS - FREE TEXT/NARRATIVE: Pt presents to the ER with c/o shortness of breath. Pt states she was seen on 01/21 and dx with pneumonia. She was started on Augmentin and Prednisone. Patient states she has been taking the medications as prescribed, but states she does not feel any better, in fact her SOB is worse. Patient admits to fever and chills. Denies N/V/D. She states she has been coughing quite a bit and does admit to some chest pains with coughing. Onset: Gradual Chest Pain Score (Numeric/FACES): 7 - Related Data Allergies Allergy/AdvReac Type Severity Reaction Status Date / Time acetaminophen Allergy Nausea Verified 08/13/17 18:49 [From Tylenol-Codeine #3] codeine phosphate Allergy Nausea Verified 08/13/17 18:49 [From Tylenol-Codeine #3] Home Meds: Home Meds Albuterol [Proair HFA] 2 puff INH Q6H 11/22/15 [History] Ibuprofen 1 tab PO Q6H PRN 11/22/15 [History] SUMAtriptan [Imitrex] 1 tab PO ASDIRECTED PRN 11/22/15 [History] Gabapentin [Neurontin] 1 tab PO TID 03/22/17 [History] QUEtiapine Fumarate [Seroquel Xr] 450 mg PO BEDTIME 03/22/17 [History] Tolterodine [Detrol] 1 tab PO DAILY 03/22/17 [History] carBAMazepine [TEGretol] 4 tab PO BID 03/22/17 [History] oxyCODONE 5 mg PO ASDIRECTED 08/13/17 [History] Amoxicillin/Potassium Clav [Augmentin 875-125 Tablet] 1 tab PO DAILY 08/16/17 [ History] Prednisone [IJD: predniSONE] 20 mg PO DAILY 08/16/17 [History] Past Medical History HEENT History: Reports: None Cardiovascular History: Reports: None Respiratory History: Reports: Asthma, Pneumonia, Recurrent Gastrointestinal History: Reports: None Genitourinary History: Reports: Renal Calculus, UTI, 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 OB/BYN History: fulgeration of endometriosis Musculoskeletal History: Reports: Arthritis Neurological History: Reports: Seizure Psychiatric History: Reports: Anxiety, Bipolar, Depression, OCD, PTSD Other Psychiatric History: tobacco habituation Endocrine/Metabolic History: Reports: None Hematologic History: Reports: Anemia Immunologic History: Reports: None Oncologic (Cancer) History: Reports: None Dermatologic History: Reports: None - Infectious Disease History Infectious Disease History: Reports: Chicken Pox - Past Surgical History Head Surgeries/Procedures: Reports: None HEENT Surgical History: Reports: Tonsillectomy Cardiovascular Surgical History: Reports: None Respiratory Surgical History: Reports: None GI Surgical History: Reports: Cholecystectomy, Colonoscopy Female Surgical History: Reports: Breast Biopsy, Hysterectomy, Salpingo- Oophorectomy Neurological Surgical History: Reports: None Musculoskeletal Surgical History: Reports: Shoulder Surgery Social & Family History - Family History Family Medical History: Noncontributory Oncologic: Reports: Lymphoma - Tobacco Use Smoking Status *Q: Current Every Day Smoker Years of Tobacco use: 20 Packs/Tins Daily: 0.5 - Caffeine Use Caffeine Use: Reports: Coffee, Energy Drinks, Tea - Recreational Drug Use Recreational Drug Use: No - Living Situation & Occupation Living situation: Reports: with Family Occupation: Unemployed ED ROS GENERAL - Review of Systems Review Of Systems: ROS reveals no pertinent complaints other than HPI. ED EXAM, GENERAL - Physical Exam Exam: See Below Exam Limited By: No Limitations General Appearance: Alert, WD/WN, Mild Distress Eye Exam: Bilateral Eye: EOMI, Normal Inspection Ears: Normal External Exam, Hearing Grossly Normal Nose: Normal Inspection Throat/Mouth: Normal Inspection, Normal Lips, Normal Teeth, Normal Oropharynx, No Airway Compromise. No: Normal Voice (raspy voice) Head: Atraumatic, Normocephalic Neck: Normal Inspection, Supple, Non-Tender, Full Range of Motion Respiratory/Chest: No Accessory Muscle Use, Decreased Breath Sounds, Other (Pt states feeling winded with talking and coughing) Cardiovascular: Normal Peripheral Pulses, Regular Rate, Rhythm, No Edema, No Gallop, No JVD, No Murmur, No Rub Peripheral Pulses: 2+: Radial (L), Radial (R) GI/Abdominal: Normal Bowel Sounds, Soft, Non-Tender (Female) Exam: Deferred Rectal (Female) Exam: Deferred Back Exam: Normal Inspection, Full Range of Motion Extremities: Normal Inspection, Normal Range of Motion, Non-Tender, Normal Capillary Refill, No Pedal Edema Neurological: Alert, Oriented, CN II-XII Intact, Normal Cognition, Normal Gait, Normal Reflexes, No Motor/Sensory Deficits Psychiatric: Normal Affect, Normal Mood Skin Exam: Warm, Dry, Intact, Normal Color, No Rash Lymphatic: No Adenopathy Course - Vital Signs Last Recorded V/S: Last Vital Signs Temp 99.4 F 08/16/17 12:57 Pulse 63 08/16/17 15:59 Resp 19 08/16/17 12:57 BP 123/84 08/16/17 12:57 Pulse Ox 95 08/16/17 12:57 - Orders/Labs/Meds Orders: Active Orders 24 hr Category Date Time Status Peripheral IV Care [RC] . DIRECTED Care 08/16/17 14:09 Active RT Aerosol Therapy [RC] ASDIRECTED Care 08/16/17 14:06 Active RT Aerosol Therapy [RC] ASDIRECTED Care 08/16/17 15:55 Active Chest 2V [CR] Urgent Exams 08/16/17 14:08 Taken UA W/MICROSCOPIC [URIN] Stat Lab 08/16/17 14:47 Ordered Peripheral IV Insertion Adult [OM.PC] Stat Oth 08/16/17 14:07 Ordered Labs: Laboratory Tests 08/16/17 08/16/17 08/16/17 Range/Units 14:47 14:47 14:47 WBC 7.9 (5.0-10.0) 10^3/uL RBC 3.75 L (4.2-5.4) 10^6/uL Hgb 11.4 L (12.0-16.0) g/dL Hct 32.3 L (37.0-47.0) % MCV 86.1 (80-100) fL MCH 30.4 (27.0-34.0) pg MCHC 35.3 H (33.0-35.0) g/dL Plt Count 394 D (150-450) 10^3/uL Neut % (Auto) 77.0 H (42.2-75.2) % Lymph % (Auto) 18.2 L (20.5-50.1) % [place] % (Auto) 4.7 (2-8) % Eos % (Auto) 0.1 L (1.0-3.0) % Baso % (Auto) 0.0 (0.0-1.0) % Add Manual Diff Yes Neutrophils % (Manual) 73 (42-75) % Band Neutrophils % 4 % Lymphocytes % (Manual) 22 (20-50) % Metamyelocytes % 1 Hypochromasia 2+ moderate Rouleaux 2+ moderate Sodium 141 (135-145) mmol/L Potassium 3.5 L (3.6-5.0) mmol/L Chloride 105 (101-111) mmol/L Carbon Dioxide 24.0 (21.0-31.0) mmol/L Anion Gap 15.5 BUN 8 (7-18) mg/dL Creatinine 0.6 (0.6-1.3) mg/dL Est Cr Clr Drug Dosing 86.53 mL/min Estimated GFR (MDRD) > 60 BUN/Creatinine Ratio 13.33 Glucose 115 H (74-105) mg/dL Calcium 9.0 (8.4-10.2) mg/dl Total Bilirubin 0.5 (0.2-1.0) mg/dL AST 30 (10-42) IU/L ALT 66 H (10-60) IU/L Alkaline Phosphatase 146 H (42-121) IU/L Total Protein 7.1 (6.7-8.2) g/dl Albumin 3.5 (3.2-5.5) g/dl Globulin 3.6 Albumin/Globulin Ratio 0.97 Urine Color Yellow (YELLOW) Urine Appearance Clear (CLEAR) Urine pH 7.5 (5.0-9.0) Ur Specific [place] 1.015 (1.005-1.030) Urine Protein Negative (NEGATIVE) Urine Glucose (UA) Negative (NEGATIVE) Urine Ketones Negative (NEGATIVE) Urine Occult Blood Negative (NEGATIVE) Urine Nitrite Negative (NEGATIVE) Urine Bilirubin Negative (NEGATIVE) Urine Urobilinogen 0.2 (0.2-1.0) mg/dL Ur Leukocyte Esterase Negative (NEGATIVE) Urine RBC Not seen /HPF Urine WBC Not seen (0-5/HPF) /HPF Ur Epithelial Cells Rare /HPF Urine Bacteria Not seen (0-FEW/HPF) /HPF Meds: Medications Discontinued Medications Generic Name Dose Route Start Last Admin Trade Name Freq PRN Reason Stop Dose Admin Albuterol 2.5 mg 08/16/17 15:55 08/16/17 15:58 Proventil Neb Soln NEB 08/16/17 15:56 2.5 mg ONETIME ONE Administration Albuterol Confirm 08/16/17 15:57 Proventil Neb Soln Administered 08/16/17 15:58 Dose 2.5 mg .ROUTE .STK-MED ONE Albuterol/Ipratropium 3 ml 08/16/17 14:06 08/16/17 14:10 Duoneb 3.0-0.5 Mg/3 Ml NEB 08/16/17 14:07 3 ml ONETIME ONE Administration Sodium Chloride 1,000 mls @ 999 mls/hr 08/16/17 14:09 08/16/17 14:58 Normal Saline IV 08/16/17 15:09 999 mls/hr .BOLUS ONE Administration Sodium Chloride 10 ml 08/16/17 14:08 08/16/17 14:54 Saline Flush FLUSH 10 ml ASDIRECTED PRN Administration Keep Vein Open - Radiology Interpretation Free Text/Narrative:: Chest xray: IMPRESSION: Near resolution of basilar atelectasis. Otherwise mild vascular congestion Thank you for allowing us to participate in the care of your patient. Dictated and Authenticated by: Chalo Varela MD 08/16/2017 3:08 PM Central Time ([place] & [place]) See rad report Departure - Departure Time of Disposition: 15:54 Disposition: Home, Self-Care 01 Condition: Fair Clinical Impression: Bronchitis Pneumonia Qualifiers: Pneumonia type: due to unspecified organism Laterality: right Lung location: lower lobe of lung Qualified Code(s): J18.1 - Lobar pneumonia, unspecified organism - Discharge Information Instructions: Shortness of Breath, Adult, [id number], Acute Bronchitis, Adult , [id number], Upper Respiratory Infection, Adult, [id number] Referrals: PCP,None [Primary Care Provider] - Forms: ED Department Discharge Additional Instructions: RX: Naresh Jackson Continue taking Prednisone and Augmentin Follow up with your primary care facility this week - My Orders Last 24 Hours: My Active Orders 08/16/17 14:06 RT Aerosol Therapy [RC] ASDIRECTED 08/16/17 14:07 Peripheral IV Insertion Adult [OM.PC] Stat 08/16/17 14:08 Chest 2V [CR] Urgent 08/16/17 14:09 Peripheral IV Care [RC] . DIRECTED 08/16/17 14:47 UA W/MICROSCOPIC [URIN] Stat 08/16/17 15:55 RT Aerosol Therapy [RC] ASDIRECTED - Assessment/Plan Last 24 Hours: My Active Orders 08/16/17 14:06 RT Aerosol Therapy [RC] ASDIRECTED 08/16/17 14:07 Peripheral IV Insertion Adult [OM.PC] Stat 08/16/17 14:08 Chest 2V [CR] Urgent 08/16/17 14:09 Peripheral IV Care [RC] . DIRECTED 08/16/17 14:47 UA W/MICROSCOPIC [URIN] Stat 08/16/17 15:55 RT Aerosol Therapy [RC] ASDIRECTED
[2017-08-16] MEDS ORDERED: Sodium Chloride 0.9% 10 ML Syringe FLUSH PRN (14:08)
[2017-08-16] MEDS ORDERED: Sodium Chloride 0.9% 1,000 ML IV ONE (14:09)
[2017-08-16 15:19] LABS: CHLORIDE,CL 105 mmol/L (101-111); SODIUM,NA 141 mmol/L (135-145)
[2017-08-16] MEDS ORDERED: Albuterol 0.083% 2.5 MG/3 ML Neb Soln NEB ONE (15:55)
[2017-08-16] MEDS ORDERED: Albuterol 0.083% 2.5 MG/3 ML Neb Soln ONE (15:57)
== END 2017-08-16 16:10 | disposition home or self-care (01) ==
LOC: DL.ED 12:35
DX: J18.9 Pneumonia, unspecified organism (principal); J40 Bronchitis, not specified as acute or chronic; F17.210 Nicotine dependence, cigarettes, uncomplicated; Z88.6 Allergy status to analgesic agent; Z88.5 Allergy status to narcotic agent; Z79.899 Other long term (current) drug therapy
CPT/HCPCS: 36415; 71046; 80053; 81001; 85025; 94640; 96360; 99284; J7030; J7050; J7620; 99283

== ENCOUNTER 2018-04-21 10:19 | Emergency (ER) | payer MEDICARE, MEDICAID ==
[2018-04-21 11:38] VITALS: BP 115/81
[2018-04-21] MEDS ORDERED: Sulfamethoxazole/Trimethoprim 800-160 MG Tab PO ONE (14:25)
[2018-04-21] MEDS ORDERED: Ketorolac 30 MG/ML SDV IM ONE (14:25)
[2018-04-21] MEDS ORDERED: cefTRIAXone 1 GM Vial IM ONE (14:29)
--- NOTE | 2018-04-21 14:31 | EDM.PDOC ---
ED HPI GENERAL MEDICAL PROBLEM - General Chief Complaint: Wound Recheck Stated Complaint: WOND DRAINING PUSS AND SPLIT OPEN [phone] Time Seen by Provider: 04/21/18 14:00 Source of Information: Reports: Patient History Limitations: Reports: No Limitations - History of Present Illness INITIAL COMMENTS - FREE TEXT/NARRATIVE: this patient comes emergency department today with complaints of a wound on her right elbow draining. On Thursday she had the sutures taken out following a surgery to do something for her elbow. She is unsure what it was for. She had her sutures taken on Thursday and over the past couple of days the wound is opened up and been draining. It is quite painful. She noticed some swelling to it. No fever no chills. She has not spoken with her surgeon about this. Right Elbow Pain Score (Numeric/FACES): 8 - Related Data Allergies Allergy/AdvReac Type Severity Reaction Status Date / Time acetaminophen Allergy Nausea Verified 04/21/18 11:38 [From Tylenol-Codeine #3] codeine phosphate Allergy Nausea Verified 04/21/18 11:38 [From Tylenol-Codeine #3] Home Meds: Home Meds Albuterol [Proair HFA] 2 puff INH Q6H 11/22/15 [History] Ibuprofen 1 tab PO Q6H PRN 11/22/15 [History] SUMAtriptan [Imitrex] 1 tab PO ASDIRECTED PRN 11/22/15 [History] Gabapentin [Neurontin] 1 tab PO TID 03/22/17 [History] QUEtiapine Fumarate [Seroquel Xr] 450 mg PO BEDTIME 03/22/17 [History] Tolterodine [Detrol] 1 tab PO DAILY 03/22/17 [History] carBAMazepine [TEGretol] 4 tab PO BID 03/22/17 [History] oxyCODONE 5 mg PO ASDIRECTED 08/13/17 [History] Amoxicillin/Potassium Clav [Augmentin 875-125 Tablet] 1 tab PO DAILY 08/16/17 [ History] Prednisone [IJD: predniSONE] 20 mg PO DAILY 08/16/17 [History] Sulfamethoxazole/Trimethoprim [Bactrim Ds Tablet] 1 each PO BID #14 tablet 04/21 [Rx] Past Medical History HEENT History: Reports: None Cardiovascular History: Reports: None Respiratory History: Reports: Asthma, Pneumonia, Recurrent Gastrointestinal History: Reports: None Genitourinary History: Reports: Renal Calculus, UTI, Recurrent 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 TRIMMER MOLD History: fulgeration of endometriosis Musculoskeletal History: Reports: Arthritis Neurological History: Reports: Seizure Psychiatric History: Reports: Anxiety, Bipolar, Depression, OCD, PTSD Other Psychiatric History: tobacco habituation Endocrine/Metabolic History: Reports: None Hematologic History: Reports: Anemia Immunologic History: Reports: None Oncologic (Cancer) History: Reports: None Dermatologic History: Reports: None - Infectious Disease History Infectious Disease History: Reports: Chicken Pox - Past Surgical History Head Surgeries/Procedures: Reports: None HEENT Surgical History: Reports: Tonsillectomy Cardiovascular Surgical History: Reports: None Respiratory Surgical History: Reports: None GI Surgical History: Reports: Cholecystectomy, Colonoscopy Female Surgical History: Reports: Breast Biopsy, Hysterectomy, Salpingo- Oophorectomy Neurological Surgical History: Reports: None Musculoskeletal Surgical History: Reports: Shoulder Surgery Social & Family History - Family History Family Medical History: Noncontributory Oncologic: Reports: Lymphoma - Caffeine Use Caffeine Use: Reports: Coffee, Energy Drinks, Tea - Living Situation & Occupation Living situation: Reports: with Family Occupation: Unemployed ED ROS GENERAL - Review of Systems Review Of Systems: ROS reveals no pertinent complaints other than HPI. ED EXAM, SKIN/RASH Exam: See Below General Appearance: Alert, WD/WN, No Apparent Distress Respiratory/Chest: No Respiratory Distress Cardiovascular: Normal Peripheral Pulses, Regular Rate, Rhythm Peripheral Pulses: 2+: Radial (L), Radial (R), Posterior Tibial (L), Posterior Tibial (R), Dorsalis Pedis (L), Dorsalis Pedis (R) Extremities: Increased Warmth (there is increased warmth and swelling to the posterior aspect of the right elbow. There is a small wound dehisced that' sapproximately half a centimeter in length. It is draining clear fluid. There is quite a bit of induration and tenderness throughout the posterior elbow.There is no lymphadenopathy of the right axilla. There is no streaking.). No: Normal Inspection Neurological: Alert, Oriented, Normal Cognition, No Motor/Sensory Deficits Course - Vital Signs Last Recorded V/S: Last Vital Signs Temp 37.0 C 04/21/18 11:34 Pulse 75 04/21/18 11:34 Resp 16 04/21/18 11:34 BP 115/81 04/21/18 11:34 Pulse Ox 100 04/21/18 11:34 - Orders/Labs/Meds Labs: Laboratory Tests 04/21/18 04/21/18 04/21/18 Range/Units 14:35 14:35 14:35 WBC 7.5 (5.0-10.0) 10^3/uL RBC 4.49 (4.2-5.4) 10^6/uL Hgb 13.9 D (12.0-16.0) g/dL Hct 39.1 (37.0-47.0) % MCV 87.1 (80-100) fL MCH 31.0 (27.0-34.0) pg MCHC 35.5 H (33.0-35.0) g/dL Plt Count 255 D (150-450) 10^3/uL Neut % (Auto) 66.5 (42.2-75.2) % Lymph % (Auto) 26.0 (20.5-50.1) % [place] % (Auto) 5.1 (2-8) % Eos % (Auto) 2.1 (1.0-3.0) % Baso % (Auto) 0.3 (0.0-1.0) % Sodium 130 L D (135-145) mmol/L Potassium 3.9 (3.6-5.0) mmol/L Chloride 95 L (101-111) mmol/L Carbon Dioxide 23.0 (21.0-31.0) mmol/L Anion Gap 15.9 BUN 25 H (7-18) mg/dL Creatinine 0.7 (0.6-1.3) mg/dL Est Cr Clr Drug Dosing 73.36 mL/min Estimated GFR (MDRD) > 60 Glucose 94 (74-105) mg/dL Calcium 9.3 (8.4-10.2) mg/dl C-Reactive Protein 0.6 (0.0-1.3) mg/dL Meds: Medications Discontinued Medications Generic Name Dose Route Start Last Admin Trade Name Freq PRN Reason Stop Dose Admin Ceftriaxone Sodium 1 gm 04/21/18 14:29 04/21/18 14:52 Rocephin IM 04/21/18 14:30 Not Given ONETIME ONE Ceftriaxone Sodium Confirm 04/21/18 14:45 04/21/18 14:52 Rocephin Administered 04/21/18 14:46 1 gm Dose Administration 1 gm .ROUTE .STK-MED ONE Ketorolac Tromethamine 30 mg 04/21/18 14:25 04/21/18 14:51 Toradol IM 04/21/18 14:26 30 mg ONETIME ONE Administration Lidocaine HCl 30 ml 04/21/18 14:38 04/21/18 14:52 Xylocaine-Mpf 1% INJECT 04/21/18 14:39 30 ml ONETIME ONE Administration Trimethoprim/Sulfamethoxazole 1 tab 04/21/18 14:25 04/21/18 14:50 Septra Ds PO 04/21/18 14:26 1 tab ONETIME ONE Administration - Re-Assessments/Exams Free Text/Narrative Re-Assessment/Exam: 04/21/18 wound culture pending. Ketorolac for pain. I did use a bedside ultrasound and reviewed extemporaneously by myself the joint. I do see some soft tissue swelling superficially but I do not see any sites of abscess formation. We will send her home on Bactrim sensitivities to follow. She was controlled with this plan. Departure - Departure Time of Disposition: 14:20 Disposition: Home, Self-Care 01 Clinical Impression: Cellulitis Qualifiers: Site of cellulitis: extremity Site of cellulitis of extremity: upper extremity Laterality: right Qualified Code(s): L03.113 - Cellulitis of right upper limb - Discharge Information Prescriptions: Sulfamethoxazole/Trimethoprim [Bactrim Ds Tablet] 1 each PO BID #14 tablet Instructions: Cellulitis, Adult, [id number] Referrals: Breanne Sanchez MD [Family Provider] - Forms: ED Department Discharge Additional Instructions: Ibuprofen as needed for pain. Warm packs to the area as much as possible to help with drainage. Bactrim DS, 1 tablet twice daily for the next 7 days. RX given to the patient. Contact your surgeon today for follow up planning. Return to the ED if new or worsening symptoms. - Assessment/Plan Assessment:: Cellulitis wound dehiscence of the right elbow. Plan: buprofen as needed for pain. Warm packs to the area as much as possible to help with drainage. Bactrim DS, 1 tablet twice daily for the next 7 days. RX given to the patient. Contact your surgeon today for follow up planning. Return to the ED if new or worsening symptoms.
[2018-04-21] MEDS ORDERED: Lidocaine 1% 30 ML SDV INJECT ONE (14:38)
[2018-04-21] MEDS ORDERED: cefTRIAXone 1 GM Vial ONE (14:45)
[2018-04-21 15:00] LABS: ANION GAP 15.9; CHLORIDE,CL 95 mmol/L (101-111); SODIUM,NA 130 mmol/L (135-145)
== END 2018-04-21 15:00 | disposition home or self-care (01) ==
LOC: DL.ED 10:19
DX: L03.113 Cellulitis of right upper limb (principal); Z88.8 Allergy status to other drugs, medicaments and biological substances; Z88.5 Allergy status to narcotic agent
CPT/HCPCS: 36415; 80048; 85025; 86140; 87070; 96372; 96374; 99284; A9270; J0696; J1885; 87077; 87186

== ENCOUNTER 2018-11-29 17:38 | Emergency (ER) | payer MEDICARE, MEDICAID ==
[2018-11-29 17:53] VITALS: BP 132/74
--- NOTE | 2018-11-29 18:32 | EDM.PDOC ---
Scribed by Karen Fonseca 11/29/181818 for Lay Don NP <Lay Don - Last Filed: 11/29/18 18:29> ED HPI GENERAL MEDICAL PROBLEM - General Chief Complaint: Abdominal Pain Stated Complaint: ABDOMINAL PAIN LEFT SIDE Time Seen by Provider: 11/29/18 18:18 Source of Information: Reports: Patient, RN, RN Notes Reviewed History Limitations: Reports: No Limitations - History of Present Illness INITIAL COMMENTS - FREE TEXT/NARRATIVE: Pt to ER with c/o LLQ pain. Patient states the pain began about 2:30 today. She states she had the sharp pain, and feels as though her abdomen gets bloated at times. States she has had difficulty with constipation in the past, and is on daily stool softeners. Patient states she has a BM about every other day, with the last one being this morning. She states it was soft and normal for her. Patient denies fever, chills, N/V/D. States she has had a hysterectomy and believes all that is left is the left ovary and fallopian tube. Onset: Today, Sudden - Related Data Allergies Allergy/AdvReac Type Severity Reaction Status Date / Time acetaminophen Allergy Nausea Verified 11/29/18 17:49 [From Tylenol-Codeine #3] codeine phosphate Allergy Nausea Verified 11/29/18 17:49 [From Tylenol-Codeine #3] Home Meds: Home Meds Albuterol [Proair HFA] 2 puff INH Q6H 11/22/15 [History] Ibuprofen 1 tab PO Q6H PRN 11/22/15 [History] SUMAtriptan [Imitrex] 1 tab PO ASDIRECTED PRN 11/22/15 [History] QUEtiapine Fumarate [Seroquel Xr] 450 mg PO BEDTIME 03/22/17 [History] carBAMazepine [TEGretol] 400 mg PO BID 03/22/17 [History] Donepezil HCl 10 mg PO BEDTIME 11/29/18 [History] Folic Acid 1 mg PO DAILY 11/29/18 [History] Hydrocodone/Acetaminophen [Hydrocodon-Acetaminophen 5-325] 1 each PO TID [History] Linaclotide [Linzess] 290 mg PO DAILY 11/29/18 [History] Mirabegron [Myrbetriq] 25 mg PO DAILY 11/29/18 [History] hydrOXYzine HCl [hydrOXYzine] 25 mg PO DAILY 11/29/18 [History] Past Medical History HEENT History: Reports: None Cardiovascular History: Reports: None Respiratory History: Reports: Asthma, Pneumonia, Recurrent Gastrointestinal History: Reports: None Genitourinary History: Reports: Renal Calculus, UTI, Recurrent 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: fulgeration of endometriosis Musculoskeletal History: Reports: Arthritis Neurological History: Reports: Seizure Psychiatric History: Reports: Anxiety, Bipolar, Depression, OCD, PTSD Other Psychiatric History: tobacco habituation Endocrine/Metabolic History: Reports: None Hematologic History: Reports: Anemia Immunologic History: Reports: None Oncologic (Cancer) History: Reports: None Dermatologic History: Reports: None - Infectious Disease History Infectious Disease History: Reports: Chicken Pox - Past Surgical History Head Surgeries/Procedures: Reports: None HEENT Surgical History: Reports: Tonsillectomy Cardiovascular Surgical History: Reports: None Respiratory Surgical History: Reports: None GI Surgical History: Reports: Cholecystectomy, Colonoscopy Female Surgical History: Reports: Breast Biopsy, Hysterectomy, Salpingo- Oophorectomy Neurological Surgical History: Reports: None Musculoskeletal Surgical History: Reports: Shoulder Surgery Social & Family History - Family History Family Medical History: Noncontributory Oncologic: Reports: Lymphoma - Caffeine Use Caffeine Use: Reports: Coffee, Energy Drinks, Tea - Living Situation & Occupation Living situation: Reports: with Family Occupation: Unemployed ED ROS GENERAL - Review of Systems Review Of Systems: ROS reveals no pertinent complaints other than HPI. ED EXAM, GI/ABD - Physical Exam Exam: See Below Exam Limited By: No Limitations General Appearance: Alert, WD/WN, Mild Distress Eyes: Bilateral: Normal Appearance, EOMI Ears: Normal External Exam, Hearing Grossly Normal Nose: Normal Inspection Throat/Mouth: Normal Inspection, Normal Voice, No Airway Compromise Head: Atraumatic, Normocephalic Neck: Normal Inspection, Supple, Non-Tender, Full Range of Motion Respiratory/Chest: No Respiratory Distress, Lungs Clear, Normal Breath Sounds, No Accessory Muscle Use, Chest Non-Tender Cardiovascular: Normal Peripheral Pulses, Regular Rate, Rhythm, No Edema, No Gallop, No JVD, No Murmur, No Rub GI/Abdominal Exam: Normal Bowel Sounds, Soft, No Organomegaly, No Distention, No Abnormal Bruit, No Mass, Pelvis Stable, Tender (LLQ) (Female) Exam: Deferred Rectal (Female) Exam: Deferred Back Exam: Normal Inspection, Full Range of Motion, NT Extremities: Normal Inspection, Normal Range of Motion, Non-Tender, Normal Capillary Refill, No Pedal Edema Neurological: Alert, Oriented, CN II-XII Intact, Normal Cognition, Normal Gait, Normal Reflexes, No Motor/Sensory Deficits Psychiatric: Normal Affect, Normal Mood Skin Exam: Warm, Dry, Intact, Normal Color, No Rash Lymphatic: No Adenopathy Course - Vital Signs Last Recorded V/S: Last Vital Signs Temp 97.5 F 11/29/18 17:52 Pulse 80 11/29/18 17:52 Resp 18 11/29/18 17:52 BP 132/74 11/29/18 17:52 Pulse Ox 100 11/29/18 17:52 - Orders/Labs/Meds Labs: Laboratory Tests 11/29/18 Range/Units 18:45 Urine Color Yellow (YELLOW) Urine Appearance Clear (CLEAR) Urine pH 7.5 (5.0-9.0) Ur Specific [place] 1.015 (1.005-1.030) Urine Protein Negative (NEGATIVE) Urine Glucose (UA) Negative (NEGATIVE) Urine Ketones Negative (NEGATIVE) Urine Occult Blood Negative (NEGATIVE) Urine Nitrite Negative (NEGATIVE) Urine Bilirubin Negative (NEGATIVE) Urine Urobilinogen 0.2 (0.2-1.0) mg/dL Ur Leukocyte Esterase Negative (NEGATIVE) Departure - Departure Disposition: Home, Self-Care 01 Clinical Impression: Constipation by delayed colonic transit, Chronic, continuous use of opioids Abdominal pain Qualifiers: Abdominal location: generalized Qualified Code(s): R10.84 - Generalized abdominal pain - Discharge Information Instructions: Constipation, Adult, [id number] Referrals: Breanne Sanchez MD [Primary Care Provider] - Forms: ED Department Discharge Additional Instructions: light diet Magnesium citrate one bottle tonight increase activity, fruit, fluid in diet follow up if fever, chills nausea and vomiting for recheck <Jessie Johnson - Last Filed: 11/30/18 06:03> ED HPI GENERAL MEDICAL PROBLEM - History of Present Illness Duration: Minutes: Course - Radiology Interpretation Free Text/Narrative:: [facility] Final Radiology Report Call: [phone] assistance Online chat: [email or web address] Name: MICHA PAULSON Age: 48Years F Date: 11/29/2018 SSN: -- : [id number] Study: XR ABDOMEN COMPLETE W DECUBITUS &/OR ERECT VIEWS Requesting Physician: Lay Don Images: 3 Addl Studies: Provided Clinical History: Contrast: Contrast Medium: Contrast Amount: Contrast Method: CONFIDENTIALITY STATEMENT This report is intended only for use by the referring physician, and only in accordance with law. If you received this in error, call [phone]. Page 1 of 1 EXAM: XR Abdomen, 3 or More Views EXAM DATE/TIME: 11/29/2018 6:25 PM CLINICAL HISTORY: 48 years old, female; Abdominal pain; Localized; Left lower quadrant (llq) TECHNIQUE: Imaging protocol: Frontal view of the abdomen/pelvis with upright view of the abdomen and one or more additional views. COMPARISON: No relevant prior studies available. FINDINGS: Gastrointestinal tract: Normal. No bowel dilation. Intraperitoneal space: There are surgical clips in right upper quadrant. Bones/joints: There are prominent calcifications projecting just over the symphysis pubis. IMPRESSION: Phleboliths versus urolithiasis. CT of the pelvis could further evaluate. Thank you for allowing us to participate in the care of your patient. Dictated and Authenticated by: Chalo Varela MD 11/29/2018 6:59 PM Central Time ([place] & [place]) Departure - Departure Time of Disposition: 19:20 Condition: Good - Discharge Information *PRESCRIPTION DRUG MONITORING PROGRAM REVIEWED*: Yes *COPY OF PRESCRIPTION DRUG MONITORING REPORT IN PATIENT SUSY: No I have read and agree with the documentation that has been completed regarding this visit. By signing this record, I attest that the documentation was completed in my physical presence and is an accurate record of the encounter.
== END 2018-11-29 19:20 | disposition home or self-care (01) ==
LOC: DL.ED 17:38
DX: K59.01 Slow transit constipation (principal); J45.909 Unspecified asthma, uncomplicated; F31.9 Bipolar disorder, unspecified; Z88.6 Allergy status to analgesic agent; Z79.899 Other long term (current) drug therapy; Z87.442 Personal history of urinary calculi
CPT/HCPCS: 74019; 81003; 99282; 99284-25

== ENCOUNTER 2019-01-20 07:59 | Day surgery (SDC) | payer MEDICARE, MEDICAID ==
[~2019-01-20 07:59] MED LIST: Midazolam 1 MG/ML 2 ML SDV ONE; Sodium Chloride 0.9% 10 ML Syringe FLUSH SCH; fentaNYL 100 MCG/2 ML SDV ONE
[2019-01-20] MEDS ORDERED: Dextrose 5%-0.45% NaCl 1,000 ML IV SCH (08:00)
[2019-01-20] MEDS ORDERED: Midazolam 1 MG/ML 2 ML SDV IV ONE ×8 (08:00→08:44)
[2019-01-20] MEDS ORDERED: fentaNYL 100 MCG/2 ML SDV IV ONE ×4 (08:00→08:41)
--- NOTE | 2019-01-20 12:00 | OR ---
DATE: 01/20/2019 PREOPERATIVE DIAGNOSIS: Screening colonoscopy. POSTOPERATIVE DIAGNOSIS: Screening colonoscopy. PROCEDURE: Total colonoscopy. ANESTHESIA: Conscious sedation with IV Versed and fentanyl. SPECIMEN: None. FINDINGS: Normal colonoscopy. RECOMMENDATION: Followup screening for polyps in 10 years. INDICATION FOR PROCEDURE: This 48-year-old female referred by Dr. Sanchez for screening colonoscopy. PROCEDURE IN DETAIL: After adequate preparation, a colonoscope was inserted into the rectum. This was easily passed all the way to the cecum. Confirmation of the cecum was made by visualization of the ileocecal valve and palpation in the right lower quadrant. The bowel prep was good. On withdrawal of the scope, a good examination of the colon was accomplished. She has no abnormalities in the colon or rectum. Air was suctioned from the colon and the scope removed. [facility] /[id number]
[2019-01-20 13:14] VITALS: BP 107/70; PULSE 73
== END 2019-01-20 09:53 | disposition home or self-care (01) ==
LOC: DL.ENDO 07:59
PROVIDERS: ATTEND Surgery
DX: Z12.11 Encounter for screening for malignant neoplasm of colon (principal); Z88.5 Allergy status to narcotic agent; Z88.8 Allergy status to other drugs, medicaments and biological substances; Z79.899 Other long term (current) drug therapy
CPT/HCPCS: G0121; J2250; J3010; J7042

== ENCOUNTER 2019-01-30 12:13 | Emergency (ER) | payer MEDICARE, MEDICAID ==
[2019-01-30] MEDS ORDERED: Sodium Chloride 0.9% 10 ML Syringe FLUSH PRN (12:55)
[2019-01-30 13:34] LABS: CHLORIDE,CL 100 mmol/L (101-111); SODIUM,NA 135 mmol/L (135-145)
[2019-01-30 14:27] VITALS: BP 106/80; PULSE 74
[2019-01-30] MEDS ORDERED: Iopamidol 612 MG/ML 75 ML Bottle IVPUSH ONE (15:31)
--- NOTE | 2019-01-30 15:50 | EDM.PDOC ---
ED HPI GENERAL MEDICAL PROBLEM - General Chief Complaint: Gastrointestinal Problem Stated Complaint: BLOODY STOOLS Time Seen by Provider: 01/30/19 13:00 Source of Information: Reports: Patient, RN, RN Notes Reviewed History Limitations: Reports: No Limitations - History of Present Illness INITIAL COMMENTS - FREE TEXT/NARRATIVE: patient presents to ER with complaint of blood in stools. States began at 5 AM today. Complains of intermittent lower abdominal pain Denies fever, chills, N/V/ D, chest pain, shortness of breath. Patient states she had a colonoscopy on January 20 just because of her age. She states she has a history of colitis, and hemorrhoids. Rates pain a 4-5/10, cramping pain. Patient states she has had blood in the stools 3-4 times today. Onset: Gradual Duration: Intermittent Location: Reports: Abdomen Quality: Reports: Other (cramping) Severity: Moderate Improves with: Reports: None Worsens with: Reports: None - Related Data Allergies Allergy/AdvReac Type Severity Reaction Status Date / Time acetaminophen Allergy Nausea Verified 01/30/19 14:26 [From Tylenol-Codeine #3] codeine phosphate Allergy Nausea Verified 01/30/19 14:26 [From Tylenol-Codeine #3] Home Meds: Home Meds Albuterol [Proair HFA] 2 puff INH Q6H PRN 11/22/15 [History] Ibuprofen 1 tab PO Q6H PRN 11/22/15 [History] SUMAtriptan [Imitrex] 100 mg PO ASDIRECTED PRN 11/22/15 [History] QUEtiapine Fumarate [Seroquel Xr] 450 mg PO BEDTIME 03/22/17 [History] carBAMazepine [TEGretol] 200 mg PO BID 03/22/17 [History] Donepezil HCl 10 mg PO BEDTIME 11/29/18 [History] Folic Acid 1 mg PO DAILY 11/29/18 [History] Hydrocodone/Acetaminophen [Hydrocodon-Acetaminophen 5-325] 1 each PO TID [History] Mirabegron [Myrbetriq] 25 mg PO DAILY 11/29/18 [History] hydrOXYzine HCl [hydrOXYzine] 25 mg PO ASDIRECTED 11/29/18 [History] Latanoprost 1 drop EYEBOTH BEDTIME 01/18/19 [History] cloNIDine [Catapres] 0.1 mg PO TID 01/18/19 [History] Past Medical History HEENT History: Reports: None Cardiovascular History: Reports: High Cholesterol Respiratory History: Reports: Asthma, Pneumonia, Recurrent Gastrointestinal History: Reports: None Genitourinary History: Reports: Renal Calculus, Urinary Incontinence, UTI, Recurrent 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 History: fulgeration of endometriosis Musculoskeletal History: Reports: Arthritis Neurological History: Reports: Headaches, Chronic, Seizure, Other (See Below) Other Neuro History: INSOMNIA Psychiatric History: Reports: Addiction, Anxiety, Bipolar, Depression, OCD, PTSD Other Psychiatric History: tobacco habituation Endocrine/Metabolic History: Reports: None Hematologic History: Reports: Anemia Immunologic History: Reports: None Oncologic (Cancer) History: Reports: None Dermatologic History: Reports: None - Infectious Disease History Infectious Disease History: Reports: Chicken Pox, Measles - Past Surgical History Head Surgeries/Procedures: Reports: None HEENT Surgical History: Reports: Adenoidectomy, Tonsillectomy Cardiovascular Surgical History: Reports: None Respiratory Surgical History: Reports: None GI Surgical History: Reports: Cholecystectomy, Colonoscopy Female Surgical History: Reports: Breast Biopsy, Cystoscopy, Hysterectomy, Salpingo-Oophorectomy, Other (See Below) Other Female Surgeries/Procedures: cervix removed. BLADDER SLING Neurological Surgical History: Reports: None Musculoskeletal Surgical History: Reports: Shoulder Surgery, Other (See Below) Other Musculoskeletal Surgeries/Procedures:: LEFT WRIST SURGERY. RIGHT ELBOW SURGERY Social & Family History - Family History Family Medical History: Noncontributory Oncologic: Reports: Lymphoma - Tobacco Use Smoking Status *Q: Current Every Day Smoker Years of Tobacco use: 30 Packs/Tins Daily: 0.5 - Caffeine Use Caffeine Use: Reports: Coffee, Energy Drinks, Tea Caffeine Use Comment: 1-2 energy drinks daily. 8 cups coffee daily - Recreational Drug Use Recreational Drug Use: No - Living Situation & Occupation Living situation: Reports: with Family Occupation: Unemployed ED ROS GENERAL - Review of Systems Review Of Systems: ROS reveals no pertinent complaints other than HPI. ED EXAM, GI/ABD - Physical Exam Exam: See Below Exam Limited By: No Limitations General Appearance: Alert, WD/WN, No Apparent Distress Eyes: Bilateral: Normal Appearance, EOMI Ears: Normal External Exam, Hearing Grossly Normal Nose: Normal Inspection Throat/Mouth: Normal Inspection, Normal Voice, No Airway Compromise Head: Atraumatic, Normocephalic Neck: Normal Inspection, Supple, Non-Tender, Full Range of Motion Respiratory/Chest: No Respiratory Distress, Lungs Clear, Normal Breath Sounds, No Accessory Muscle Use, Chest Non-Tender Cardiovascular: Normal Peripheral Pulses, Regular Rate, Rhythm, No Edema, No Gallop, No JVD, No Murmur, No Rub GI/Abdominal Exam: Normal Bowel Sounds, Soft, Non-Tender, Other (Female) Exam: Deferred Rectal (Female) Exam: Deferred Back Exam: Normal Inspection, Full Range of Motion, NT Extremities: Normal Inspection, Normal Range of Motion, Non-Tender, Normal Capillary Refill, No Pedal Edema Neurological: Alert, Oriented, CN II-XII Intact, Normal Cognition, Normal Gait, Normal Reflexes, No Motor/Sensory Deficits Psychiatric: Normal Affect, Normal Mood Skin Exam: Warm, Dry, Intact, Normal Color, No Rash Lymphatic: No Adenopathy Course - Vital Signs Last Recorded V/S: Last Vital Signs Temp 97.9 F 01/30/19 12:45 Pulse 74 01/30/19 12:45 Resp 16 01/30/19 12:45 BP 106/80 01/30/19 12:45 Pulse Ox 100 01/30/19 12:45 - Orders/Labs/Meds Labs: Laboratory Tests 01/30/19 01/30/19 01/30/19 Range/Units 13:08 13:08 13:40 WBC 7.3 (5.0-10.0) 10^3/uL RBC 4.54 (4.2-5.4) 10^6/uL Hgb 14.1 (12.0-16.0) g/dL Hct 39.6 (37.0-47.0) % MCV 87.2 (80-100) fL MCH 31.1 (27.0-34.0) pg MCHC 35.6 H (33.0-35.0) g/dL Plt Count 250 (150-450) 10^3/uL Neut % (Auto) 77.2 H (42.2-75.2) % Lymph % (Auto) 16.0 L (20.5-50.1) % Thayer % (Auto) 6.3 (2-8) % Eos % (Auto) 0.4 L (1.0-3.0) % Baso % (Auto) 0.1 (0.0-1.0) % Sodium 135 (135-145) mmol/L Potassium 4.0 (3.6-5.0) mmol/L Chloride 100 L (101-111) mmol/L Carbon Dioxide 27.0 (21.0-31.0) mmol/L Anion Gap 12.0 BUN 15 (7-18) mg/dL Creatinine 0.7 (0.6-1.3) mg/dL Est Cr Clr Drug Dosing TNP Estimated GFR (MDRD) > 60 BUN/Creatinine Ratio 21.42 Glucose 109 H (74-105) mg/dL Calcium 9.3 (8.4-10.2) mg/dl Total Bilirubin 0.4 (0.2-1.0) mg/dL AST 20 (10-42) IU/L ALT 18 (10-60) IU/L Alkaline Phosphatase 63 (42-121) IU/L Total Protein 7.1 (6.7-8.2) g/dl Albumin 4.5 (3.2-5.5) g/dl Globulin 2.6 Albumin/Globulin Ratio 1.73 Urine Color Light yellow (YELLOW) Urine Appearance Clear (CLEAR) Urine pH 7.0 (5.0-9.0) Ur Specific [place] 1.010 (1.005-1.030) Urine Protein Negative (NEGATIVE) Urine Glucose (UA) Negative (NEGATIVE) Urine Ketones Negative (NEGATIVE) Urine Occult Blood Negative (NEGATIVE) Urine Nitrite Negative (NEGATIVE) Urine Bilirubin Negative (NEGATIVE) Urine Urobilinogen 0.2 (0.2-1.0) mg/dL Ur Leukocyte Esterase Negative (NEGATIVE) Meds: Medications Discontinued Medications Generic Name Dose Route Start Last Admin Trade Name Freq PRN Reason Stop Dose Admin Ciprofloxacin 500 mg 01/30/19 16:12 01/30/19 16:16 Ciprofloxacin Hcl PO 01/30/19 16:13 Not Given ONETIME ONE Iopamidol 75 ml 01/30/19 15:31 01/30/19 15:39 Isovue-300 (61%) IVPUSH 01/30/19 15:32 75 ml ONETIME ONE Administration Metronidazole 500 mg 01/30/19 16:13 01/30/19 16:16 Metronidazole PO 01/30/19 16:14 Not Given ONETIME ONE Sodium Chloride 10 ml 01/30/19 12:55 01/30/19 13:27 Saline Flush FLUSH 10 ml ASDIRECTED PRN Administration Keep Vein Open - Radiology Interpretation Free Text/Narrative:: Abdomen/Pelvis CT with contrast: FINDINGS: Liver: Normal. No mass. Gallbladder and bile ducts: Cholecystectomy. Pancreas: Normal. No ductal dilation. Spleen: Normal. No splenomegaly. Adrenals: Normal. No mass. Kidneys and ureters: Normal. No hydronephrosis. Stomach and bowel: Wall thickening in the descending colon measuring up to 1.2 cm, likely related to underdistention or colitis. Correlate clinically. Appendix: No evidence of appendicitis. Intraperitoneal space: Small amount of pelvic free fluid. Vasculature: Unremarkable. No abdominal aortic aneurysm. Lymph nodes: Unremarkable. No enlarged lymph nodes. Bladder: Bladder stones. Reproductive: Hysterectomy. Bones/joints: Mild bulges at L3-4 and L4-5. Moderate bulge at L5-S1. Soft tissues: Unremarkable. IMPRESSION: 1. Bladder stones. 2. Hysterectomy. 3. Wall thickening in the descending colon measuring up to 1.2 cm, likely related to underdistention or colitis. Correlate clinically. 4. Mild bulges at L3-4 and L4-5. 5. Moderate bulge at L5-S1. Thank you for allowing us to participate in the care of your patient. Dictated and Authenticated by: Fareed Lozano MD 01/30/2019 3:45 PM Central Time ([place] & [place]) See rad report Departure - Departure Time of Disposition: 15:50 Disposition: Home, Self-Care 01 Condition: Fair Clinical Impression: Colitis, Hematochezia - Discharge Information *PRESCRIPTION DRUG MONITORING PROGRAM REVIEWED*: No *COPY OF PRESCRIPTION DRUG MONITORING REPORT IN PATIENT SUSY: No Instructions: Abdominal Pain, Adult, [id number], Colitis, Rectal Bleeding, [id number] Referrals: PCP,None [Primary Care Provider] - Forms: ED Department Discharge Additional Instructions: Rx: Ciprofloxacin 500 mg 1 orally twice daily for 10 days Metronidazole 500 mg 1 orally twice daily for 10 days Keep diet to clear liquids for liquids and very soft diet for the next 5 days Drink plenty of water Follow-up with your primary care provider Return to the ER with any worsening of symptoms
[2019-01-30] MEDS ORDERED: Ciprofloxacin 500 MG Tab PO ONE (16:12)
[2019-01-30] MEDS ORDERED: metroNIDAZOLE 250 MG Tab PO ONE (16:13)
== END 2019-01-30 16:17 | disposition home or self-care (01) ==
LOC: DL.ED 12:13
DX: K52.9 Noninfective gastroenteritis and colitis, unspecified (principal); K92.1 Melena; I10 Essential (primary) hypertension; J45.909 Unspecified asthma, uncomplicated; F17.210 Nicotine dependence, cigarettes, uncomplicated; Z79.899 Other long term (current) drug therapy; Z88.5 Allergy status to narcotic agent
CPT/HCPCS: 36415; 74177; 80053; 81003; 85025; 99284-25; Q9967

== ENCOUNTER 2021-12-10 22:11 | Emergency (ER) | payer MEDICARE, MEDICAID ==
[2021-12-10 22:24] VITALS: BP 139/85; PULSE 75
[2021-12-10] MEDS ORDERED: Cephalexin 500 MG Cap PO ONE (22:35)
[2021-12-10] MEDS ORDERED: Bacitracin Oint 1 GM U/D Packet TOP ONE (22:36)
== END 2021-12-10 22:51 | disposition home or self-care (01) ==
LOC: DL.ED 22:11
DX: L03.116 Cellulitis of left lower limb (principal); F17.210 Nicotine dependence, cigarettes, uncomplicated; F41.9 Anxiety disorder, unspecified; F32.A Depression, unspecified; E78.00 Pure hypercholesterolemia, unspecified; Z79.899 Other long term (current) drug therapy; Z88.8 Allergy status to other drugs, medicaments and biological substances
CPT/HCPCS: 99283; A9270

== ENCOUNTER 2023-01-04 22:17 | Emergency (ER) | payer MEDICARE, MEDICAID ==
[2023-01-04] MEDS ORDERED: Ibuprofen 600 MG Tab PO ONE (23:53)
[2023-01-05 00:10] LABS: CORONAVIRUS COVID-19 NAA NEGATIVE (NEGATIVE); INFLUENZA A NAA NEGATIVE (NEGATIVE); INFLUENZA B NAA NEGATIVE (NEGATIVE); RESPIRATORY SYNCYTIAL VIR NAA NEGATIVE (NEGATIVE)
[2023-01-05] MEDS ORDERED: Amoxicillin/Clavulanate K 875-125 MG Tab PO ONE (02:03)
[2023-01-05] MEDS ORDERED: Azithromycin 250 MG Tab PO ONE (02:03)
[2023-01-05 02:22] VITALS: BP 118/74; PULSE 90
== END 2023-01-05 02:18 | disposition home or self-care (01) ==
LOC: DL.ED 22:17
DX: J18.9 Pneumonia, unspecified organism (principal); J45.909 Unspecified asthma, uncomplicated; F17.210 Nicotine dependence, cigarettes, uncomplicated; Z88.6 Allergy status to analgesic agent; Z88.5 Allergy status to narcotic agent; Z79.899 Other long term (current) drug therapy; Z20.822 Contact with and (suspected) exposure to COVID-19
CPT/HCPCS: 0241U; 71046; 99283; 99284; A9270-GY

== ENCOUNTER 2023-02-09 16:50 | Emergency (ER) | payer MEDICARE, MEDICAID ==
[2023-02-09 17:24] VITALS: BP 114/78; PULSE 74
[2023-02-09] MEDS ORDERED: Dexamethasone 4 MG Tab PO ONE (17:25)
[2023-02-09] MEDS ORDERED: Acetaminophen/HYDROcodone 325-10 MG Tab PO ONE (17:25)
[2023-02-09] MEDS ORDERED: Acetaminophen/HYDROcodone 325-10 MG Tab ONE (17:37)
[2023-02-09] MEDS ORDERED: Dexamethasone 6 MG TABLET ONE (17:37)
== END 2023-02-09 17:58 | disposition home or self-care (01) ==
LOC: DL.ED 16:50
DX: M54.16 Radiculopathy, lumbar region (principal); M54.42 Lumbago with sciatica, left side; J45.909 Unspecified asthma, uncomplicated; Z79.899 Other long term (current) drug therapy; Z88.5 Allergy status to narcotic agent; Z88.8 Allergy status to other drugs, medicaments and biological substances
CPT/HCPCS: 99283; 99284

== ENCOUNTER 2023-03-03 15:16 | Emergency (ER) | payer MEDICARE, MEDICAID ==
[2023-03-03 15:41] VITALS: BP 155/89; PULSE 89
[2023-03-03] MEDS: Dexamethasone 4 MG/ML SDV IM ONE (16:04)
== END 2023-03-03 16:20 | disposition home or self-care (01) ==
LOC: DL.ED 15:16
DX: M54.42 Lumbago with sciatica, left side (principal); F17.210 Nicotine dependence, cigarettes, uncomplicated; Z88.8 Allergy status to other drugs, medicaments and biological substances; Z79.899 Other long term (current) drug therapy; Z90.49 Acquired absence of other specified parts of digestive tract; Z90.710 Acquired absence of both cervix and uterus; Z79.891 Long term (current) use of opiate analgesic
CPT/HCPCS: 96372; 99283; J1100